=== PATIENT | female | born 1970 | race Caucasian/White ===

== ENCOUNTER → 2018-02-24 | Emergency (ER) | payer OTHER ==
[~2018-02-24] VITALS: Ht 149.9 cm; Wt 70.3 kg
[~2018-02-24] MED LIST: DEPAKOTE ER250 MG; SYNTHROID50 MCG; ZOCOR20 MG
== END | disposition home or self-care (01) ==
LOC: ER 18:11
DX: N39.0 Urinary tract infection, site not specified (principal); H10.89 Other conjunctivitis; B96.1 Klebsiella pneumoniae [K. pneumoniae] as the cause of diseases classified elsewhere; Z74.01 Bed confinement status